=== PATIENT | female | born 1980 | race Caucasian/White ===

== ENCOUNTER 2022-11-06 11:07 | Emergency (ER) | payer OTHER, SELFPAY ==
[2022-11-06 11:40] VITALS: BP 153/108; PULSE 107; RESP 16; TEMP 36.8; O2SAT 100
--- NOTE | 2022-11-06 12:32 | ED.DENTAL ---
HPI - Dental/Oral General Chief complaint: Dental/Oral Stated complaint: abscess tooth Time Seen by Provider: 11/06/22 12:32 History of Present Illness HPI Narrative: 42-year-old female with chronic dental issues presented the emergency department for evaluation of right-sided lower facial swelling. Patient reports that over the course of the last weeks of the last week patient had some right-sided dental pain. Patient did have follow-up with her dentist and was started on antibiotics . Patient had been taking 300 mg of clindamycin 3 times a day. Yesterday she was told to increase to 4 times a day. Patient reports that yesterday the facial pain was more significant and that it does feel improved today. Patient had been told by her dentist that if she did not have improvement that she needed to be seen on Monday for evaluation of the emergency department. Patient denies any chest pain or shortness of breath. Patient denies difficulty breathing or swallowing. Related Data Allergies Allergy/AdvReac Type Severity Reaction Status Date / Time adhesive Allergy Unknown RASH/REDNES Verified 11/06/22 12:42 S HYDROCODONE BIT Allergy Intermediate shakiness, Uncoded 11/06/22 12:42 vomiting PAROXETINE HCL Allergy Intermediate shakiness, Uncoded 11/06/22 12:42 vomiting ERYTHROMYCIN Allergy Unknown vomiting Uncoded 11/06/22 12:42 PROPOXYPHENE NAPSYLATE Allergy Unknown Unknown Uncoded 11/06/22 12:42 Review of Systems Review of Systems: All systems reviewed & are unremarkable except as noted in HPI and below Exam Narrative: APPEARANCE: Well appearing, no pain, no distress, well-nourished. HEAD: normocephalic, atraumatic. Face: Mild facial swelling along the right lower mandible. No submandibular swelling. No trismus, normal posterior pharynx. Mouth: No abscess amenable to drainage. EYES: PERRLA/EOMI, conjunctivae clear. NOSE: Normal no drainage THROAT: Pharynx clear, no exudate. NECK: Supple. No adenopathy, no masses. MUSCULOSKELETAL: Moves all extremities. Strength/ROM intact, No edema, No calf tenderness. NEURO: Alert. Cranial nerves II through XII intact. Grossly intact SKIN: Warm, dry. Normal Color Course Course Emergency Course: 42-year-old female presenting to the ED for right-sided facial swelling. No abscess amenable to drainage. Patient describes that the symptoms have been improving. Patient does have follow-up with dentist as scheduled tomorrow. Vital Signs Vital signs: Vital Signs Temperature 98.2 F 11/06/22 11:40 Pulse Rate 107 H 11/06/22 11:40 Respiratory Rate 16 11/06/22 11:40 Blood Pressure 153/108 H 11/06/22 11:40 Pulse Oximetry 100 11/06/22 11:40 Oxygen Delivery Room Air 11/06/22 11:40 Temperature 98.2 F 11/06/22 11:40 Pulse Rate 107 H 11/06/22 11:40 Respiratory Rate 16 11/06/22 11:40 Blood Pressure 153/108 H 11/06/22 11:40 Pulse Oximetry 100 11/06/22 11:40 Oxygen Delivery Room Air 11/06/22 11:40 Discharge Plan Discharge Clinical Impression: Toothache, Dental abscess Patient Disposition: Home, Self-Care Condition: Stable Instructions: Antibiotic Form, Dental Abscess (ED) Additional Instructions: Continue taking your clindamycin 300 mg 4 times a day. Continue have close follow-up with your dentist as scheduled tomorrow. If you have any worsening symptoms please call or return to the emergency department. Follow-up/Referrals: PHYSICIAN,[facility] [Primary Care Provider] - Stand Alone Forms: Work/School Release IP
== END 2022-11-06 12:50 | disposition home or self-care (01) ==
PROVIDERS: Emergency Provider Emergency Medicine
DX: K04.7 Periapical abscess without sinus (principal)
CPT/HCPCS: 99281